=== PATIENT | male | born 1965 | race African-American/Black ===

== ENCOUNTER 2016-09-04 14:02 | Emergency (ER) | payer OTHER | END 2016-09-04 14:38 | disposition home or self-care (01) | LOC: NAV ERS 14:02 | DX: H20.9 Unspecified iridocyclitis (principal); F17.210 Nicotine dependence, cigarettes, uncomplicated | CPT/HCPCS: 99283 ==

== ENCOUNTER 2016-09-13 10:52 | Emergency (ER) | payer OTHER | END 2016-09-13 11:40 | disposition home or self-care (01) | LOC: NAV ERS 10:52 | DX: J06.9 Acute upper respiratory infection, unspecified (principal); I10 Essential (primary) hypertension; F17.210 Nicotine dependence, cigarettes, uncomplicated | CPT/HCPCS: 87081; 87430; 99283 ==

== ENCOUNTER 2016-09-16 12:48 | Emergency (ER) | payer OTHER ==
[2016-09-16 13:49] LABS: Anion Gap 17 mmol/L (10-20); BUN (Urea Nitrogen) 11 mg/dL (8.9-20.6); Calc. Creatinine Clearance 0 mL/min (70-130); Carbon Dioxide 23 mmol/L (22-29); Chloride 104 mmol/L (98-107); Estimated GFR-MDRD Greater than 90; Glucose 82 mg/dL (70-105); Potassium 4.1 mmol/L (3.5-5.1); Sodium 140 mmol/L (136-145)
--- NOTE | 2016-09-16 15:00 | RAD ---
RADIOGRAPH CHEST 2 VIEWS: HISTORY: 50-year-old male with acute cough. FINDINGS: The thoracic aorta is tortuous and ectatic. There is no evidence of air space density, pneumothorax , or pulmonary edema. There is no cardiomegaly or pleural effusion. IMPRESSION: 1) No acute cardiopulmonary findings. 2) Ectasia of thoracic aorta. erica [] POS: [facility]
--- NOTE | 2016-09-16 15:38 | CT ---
CT NECK WITH CONTRAST: HISTORY: A 50-year-old male with a sore throat and a cough since 09/12/2016. TECHNIQUE: IV injection of 96 mL of Isovue 370. A 90 second delayed scan performed from the mid clavicular hea d level (mid thoracic trachea) to the inferior edge of the orbits. Coronal and sagittal reconstruct ions. FINDINGS: There is severe, approximately 75% opacification of the bilateral maxillary sinuses, right worse vanessa n left. This includes a large air-fluid level in the right maxillary sinus, in addition to diffuse, polypoid, circumferential mucosal thickening bilaterally. There is also severe partial opacificatio n of all the anterior and posterior ethmoid air cells, only partially imaged. There are fluid level s or posterior mucosal thickening at the dependent portion of the right sphenoid air cell. Bilatera l sphenoethmoidal recesses are widened (previous FESS?). There is mildly increased enhancement and mild, diffuse, symmetrical thickening of the pharyngeal mu cosal space of the nasopharynx and oropharynx. There is increased thickness of the lingual tonsil a nd the areas of the bilateral palatine tonsils. The adenoids are mildly thickened. The epiglottis is normal. The vallecula and piriform sinuses are bilaterally symmetrical. There is mild thickening of the true and false focal cords symmetrically. No major pathology of the thyroid gland identified. The upper half of the trachea is patent and nikky ar. There is a large number of mildly prominent cervical lymph nodes throughout all levels, presumably r eactive. Other than the cervical lymphadenopathy, no pathology is identified involving the submandi bular, parotid, parapharyngeal, perivertebral, retropharyngeal, posterior cervical, or door clamper sp aces. The bilateral tympanomastoid cavities are grossly clear. No evidence of abscess or definite neoplasm. Nonspecific mild soft tissue density surrounding the mid thoracic trachea, in the lowest i mage slices, incompletely imaged. IMPRESSION: 1. Findings consistent with an inflammatory or infectious process involving the pharyngeal mucosal space, with associated diffuse mild reactive cervical lymphadenopathy. 2. No evidence of abscess or neoplasm. 3. Paranasal sinus mucosal disease, with especially severe partial opacification of the bilateral m axillary sinuses. POS: [facility]
== END 2016-09-16 14:53 | disposition home or self-care (01) ==
LOC: NAV ERS 12:48
DX: J01.90 Acute sinusitis, unspecified (principal); J20.9 Acute bronchitis, unspecified; F17.290 Nicotine dependence, other tobacco product, uncomplicated
CPT/HCPCS: 36415; 70491; 71020; 80048

== ENCOUNTER 2025-04-01 13:43 | Emergency (ER) | payer OTHER, SELFPAY ==
[2025-04-01 14:21] LABS: Hematocrit 47.5 % (42.0-52.0); Hemoglobin 15.5 g/dL (14.0-18.0); Mean Corpuscular Hemoglobin 31.8 pg (27.0-31.0); Mean Corpuscular Volume 97.3 fl (78.0-98.0); Platelet Count 201 10x3/uL (130-400); Red Blood Cell (RBC) Count 4.89 mill/uL (4.70-6.10); White Blood Cell (WBC) Count 5.8 10x3/uL (4.8-10.8)
[2025-04-01 14:22] LABS: #Basophils 0.1 thou/uL (0.0-0.2); #Eosinophils 0.0 thou/uL (0.0-0.7); #Lymphocytes 2.7 thou/uL (1.20-3.40); #Monocytes 0.5 thou/uL (0.11-0.59); #Neutrophils 2.5 thou/uL (1.40-6.50); %Basophils 1.3 % (0.0-1.0); %Eosinophils 0.7 % (0.0-10.0); %Lymphocytes 46.8 % (21.0-51.0); %Monocytes 8.4 % (0.0-10.0); %Neutrophils 42.8 % (42.0-75.0)
[2025-04-01 14:43] LABS: Anion Gap 14 mmol/L (10-20); Carbon Dioxide 19 mmol/L (22-29); Chloride 108 mmol/L (98-107); Potassium 4.1 mmol/L (3.5-5.1); Sodium 137 mmol/L (136-145)
[2025-04-01 14:44] LABS: ALT (SGPT) 24 U/L (Less than 45); AST (SGOT) 23 U/L (11-34); Albumin 4.1 g/dL (3.1-4.5); Alkaline Phosphatase 56 U/L (40-110); BUN (Urea Nitrogen) 13 mg/dL (8.4-25.7); Bilirubin, Total 0.6 mg/dL (0.3-1.2); Calc. Creatinine Clearance 0 mL/min (70-130); Calcium 9.0 mg/dL (7.6-10.4); Globulin 3.3 g/dL (2.4-3.5); Glucose 117 mg/dL (70-105); Lipase 34 U/L (8-78)
== END 2025-04-01 14:53 | disposition home or self-care (01) ==
LOC: NAV ERS 13:43
DX: R10.9 Unspecified abdominal pain (principal)
CPT/HCPCS: 80053; 83690; 85025; 99284